=== PATIENT | male | born 1960 | race Caucasian/White ===

== ENCOUNTER 2021-01-28 22:35 | Emergency (ER) | payer BC ==
[2021-01-28] MEDS ORDERED: SODIUM CHLORIDE 0.9% 500 ML 500 ML IV ONE (23:49)
[2021-01-29 00:13] LABS: Basophils # (A) 0.1 k/uL (0-0.2); Basophils % (A) 1 %; Eosinophils # (A) 0.3 k/uL (0-0.7); Eosinophils % (A) 5 %; HGB 14.9 gm/dL (13.0-17.5); Lymphocytes # (A) 1.5 k/uL (1.0-4.8); Lymphocytes % (A) 26 %; MCHC 34.6 g/dL (31.0-37.0); MCV 92.5 fL (80.0-100.0); Mean Platelet Volume 6.8; Monocytes # (A) 0.6 k/uL (0-1.0); Monocytes % (A) 10 %; Neutrophils # (A) 3.4 k/uL (1.3-7.7); Neutrophils % (A) 57 %; Platelet Count 249 k/uL (150-450); RBC 4.65 m/uL (4.30-5.90); RDW 12.5 % (11.5-15.5); WBC 5.9 k/uL (3.8-10.6)
[2021-01-29 00:22] LABS: Albumin 4.2 g/dL (3.5-5.0); Calcium 9.1 mg/dL (8.4-10.2); Potassium 4.4 mmol/L (3.5-5.1); Total Bilirubin 0.3 mg/dL (0.2-1.3); Total Protein 6.8 g/dL (6.3-8.2)
[2021-01-29] MEDS ORDERED: SODIUM CHLORIDE 0.9% 500 ML 500 ML IV ONE (00:43)
--- NOTE | 2021-01-29 00:59 | US ---
EXAM: US Duplex Left Lower Extremity Veins CLINICAL HISTORY: ITS.REASON US Reason: Left leg pain TECHNIQUE: Real-time duplex ultrasound scan of the left lower extremity veins integrating B-mode two-dimensional vascular structure, Doppler spectral analysis, color flow Doppler imaging and compression. COMPARISON: No relevant prior studies available. FINDINGS: Deep veins: Unremarkable. No DVT in the visualized common femoral, femoral, proximal deep femoral or popliteal veins. The veins demonstrate normal color flow, are normally compressible, with normal phasic flow and/or augmentation response. Superficial veins: Unremarkable. No thrombus in the visualized great saphenous vein. Soft tissues: No acute findings. IMPRESSION: Normal left lower extremity duplex venous ultrasound.
[2021-01-29 01:01] VITALS: RESP 18
--- NOTE | 2021-01-29 01:23 | ED ---
General Adult HPI - General Chief complaint: Extremity Problem,Nontraumatic Stated complaint: Rt Leg Pain Time Seen by Provider: 01/28/21 23:19 Source: patient Mode of arrival: ambulatory Limitations: no limitations - History of Present Illness Initial comments: 60-year-old male patient presents to the emergency department today for evaluation of muscle pain and stiffness. He is also reporting pain to the left posterior thigh. Patient states symptoms were going on for about a week. Denies any fever or chills. Denies any chest pain or shortness of breath. Denies dizziness, weakness, nausea, vomiting, or diarrhea. Denies any increased physical activity or new exercise regimen. Patient denies any recent rash, cough, shortness of breath, chest pain, abdominal pain, back pain, numbness, tingling, dizziness, weakness, hematuria, dysuria, urinary urgency, urinary frequency, headache, visual changes, or any other complaints. - Related Data Allergies Allergy/AdvReac Type Severity Reaction Status Date / Time No Known Allergies Allergy Verified 01/28/21 22:53 Review of Systems ROS Statement: Those systems with pertinent positive or pertinent negative responses have been documented in the HPI. ROS Other: All systems not noted in ROS Statement are negative. Past Medical History Past Medical History: Hyperlipidemia, Hypertension History of Any Multi-Drug Resistant Organisms: None Reported Past Surgical History: No Surgical Hx Reported Past Psychological History: No Psychological Hx Reported Smoking Status: Never smoker Past Alcohol Use History: Occasional Past Drug Use History: Marijuana General Exam Limitations: no limitations General appearance: alert, in no apparent distress ENT exam: Present: normal exam, normal oropharynx, mucous membranes moist Respiratory exam: Present: normal lung sounds bilaterally. Absent: respiratory distress, wheezes, rales, rhonchi, stridor Cardiovascular Exam: Present: regular rate, normal rhythm, normal heart sounds. Absent: systolic murmur, diastolic murmur, rubs, gallop, clicks GI/Abdominal exam: Present: soft, normal bowel sounds. Absent: distended, tenderness, guarding, rebound, rigid Extremities exam: Present: normal inspection, full ROM, normal capillary refill, other (Skin to the lower extremities is pink, warm, dry. Cap refill less than 3 seconds. Pedal and posttibial pulses 2+ and equal bilaterally. No abnormalities visualized to the left posterior thigh.). Absent: tenderness, pedal edema, joint swelling, calf tenderness Neurological exam: Present: alert, oriented X3, CN II-XII intact Psychiatric exam: Present: normal affect, normal mood Skin exam: Present: warm, dry, intact, normal color. Absent: rash Course Vital Signs 01/28/21 01/29/21 01/29/21 22:38 00:55 01:45 Temperature 98.2 F 98.0 F Pulse Rate 81 76 81 Respiratory 16 18 18 Rate Blood Pressure 135/90 130/93 119/85 O2 Sat by Pulse 97 97 98 Oximetry Medical Decision Making - Medical Decision Making 60-year-old male patient presents to the emergency department today for evaluation of muscle pain and stiffness as well as pain to the left posterior thigh. Physical examination is unremarkable. No swelling to the lower extremities. Neurovascular status is intact. Ultrasound was negative for DVT. We did perform labs, did show some mild dehydration with BUN of 26, normal creatinine. I did discuss findings and results with the patient. He'll be discharged with instructions to follow-up with his primary care physician for recheck in 1-2 days. Return parameters were discussed in detail. He verbalizes understanding and agrees with this plan. My attending is Dr. Foley. - Lab Data Result diagrams: 01/29/21 00:04 01/29/21 00:04 Lab Results 01/29/21 01/29/21 Range/Units 00:04 00:04 WBC 5.9 (3.8-10.6) k/uL RBC 4.65 (4.30-5.90) m/uL Hgb 14.9 (13.0-17.5) gm/dL Hct 43.0 (39.0-53.0) % MCV 92.5 (80.0-100.0) fL MCH 32.0 (25.0-35.0) pg MCHC 34.6 (31.0-37.0) g/dL RDW 12.5 (11.5-15.5) % Plt Count 249 (150-450) k/uL MPV 6.8 Neutrophils % 57 % Lymphocytes % 26 % Monocytes % 10 % Eosinophils % 5 % Basophils % 1 % Neutrophils # 3.4 (1.3-7.7) k/uL Lymphocytes # 1.5 (1.0-4.8) k/uL Monocytes # 0.6 (0-1.0) k/uL Eosinophils # 0.3 (0-0.7) k/uL Basophils # 0.1 (0-0.2) k/uL Sodium 141 (137-145) mmol/L Potassium 4.4 (3.5-5.1) mmol/L Chloride 111 H (98-107) mmol/L Carbon Dioxide 23 (22-30) mmol/L Anion Gap 7 mmol/L BUN 26 H (9-20) mg/dL Creatinine 1.05 (0.66-1.25) mg/dL Est GFR (CKD-EPI)AfAm 88 (>60 ml/min/1.73 sqM) Est GFR (CKD-EPI)NonAf 76 (>60 ml/min/1.73 sqM) Glucose 96 (74-99) mg/dL Calcium 9.1 (8.4-10.2) mg/dL Total Bilirubin 0.3 (0.2-1.3) mg/dL AST 27 (17-59) U/L ALT 16 (4-49) U/L Alkaline Phosphatase 100 (38-126) U/L Creatine Kinase 160 (55-170) U/L Total Protein 6.8 (6.3-8.2) g/dL Albumin 4.2 (3.5-5.0) g/dL Disposition Clinical Impression: Dehydration, Muscle ache, Left leg pain Disposition: HOME SELF-CARE Condition: Good Instructions (If sedation given, give patient instructions): Dehydration (ED), Leg Pain (ED) Additional Instructions: Increase fluids. Follow-up with your primary care physician for recheck in 1-2 days. Return to the emergency department for any new, worsening, or concerning symptoms. Is patient prescribed a controlled substance at d/c from ED?: No Referrals: Kendell Coronado MD [Primary Care Provider] - 1-2 days Time of Disposition: 01:23
[2021-01-29 01:52] VITALS: BP 119/85; PULSE 81; TEMP 98
== END 2021-01-29 01:45 | disposition home or self-care (01) ==
LOC: EC 22:35
DX: E86.0 Dehydration (principal); M79.604 Pain in right leg; M79.10 Myalgia, unspecified site; I10 Essential (primary) hypertension; E78.5 Hyperlipidemia, unspecified
CPT/HCPCS: 36415; 80053; 82550; 85025; 99283

== ENCOUNTER → 2021-02-01 | Outpatient (CLI) | payer BC ==
--- NOTE | 2021-02-01 14:45 | MR ---
EXAMINATION TYPE: MR lumbar spine wo/w con DATE OF EXAM: 02/01/2021 COMPARISON: None HISTORY: Low back pain into left leg, left leg weakness CONTRAST: Standard multiplanar, multisequence MRI departmental protocol utilizing 7.5 mL intravenous Gadavist g adolinium contrast. Multiplanar multiecho imaging of the lumbar spine was performed without contrast. There is a few millimeter anterior subluxation of L4 in relation L5. There is some degenerative disc space narrowing throughout the lumbar spine and more noticeable at L4-5 and L5-S1. There is hypertrop hic facet arthropathy at multiple levels. There is very severe lumbar spinal stenosis at L4-5 due to facet arthropathy and subluxation deformity. There is moderately severe L5-S1 spinal stenosis due to posterior central disc herniation and facet arthropathy. There is no lumbar paraspinal mass. There is right side L4-5 neural foraminal stenosis due to facet arthropathy and disc space narrowing. There is also similar stenosis at L5-S1 on the right side. I see no focal bone destruction. There is no compression fracture. IMPRESSION: Severe spinal stenosis at L4-5 and L5-S1. No fracture. 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 Mild posterior disc herniations at L4-5 and L5-S1.
== END | disposition home or self-care (01) ==
LOC: RADMRIMAIN 13:08
PROVIDERS: ATTEND Family Medicine
DX: M48.07 Spinal stenosis, lumbosacral region (principal); M43.16 Spondylolisthesis, lumbar region; M51.27 Other intervertebral disc displacement, lumbosacral region
CPT/HCPCS: 72158; A9585